=== PATIENT | male | born 1960 | race Caucasian/White ===

== ENCOUNTER 2016-04-06 22:08 | Inpatient (IN) | payer MEDICAID, OTHER ==
[~2016-04-06] VITALS: Ht 167.6 cm; Wt 62.3 kg
[2016-04-07 02:08] LABS: ANION GAP 3 mmol/L (8-16); CALCIUM, TOTAL 8.4 mg/dL (8.8-10.5); CARBON DIOXIDE 31 mmol/L (22-29); CHLORIDE 104 mmol/L (98-107); CREATININE 1.07 mg/dL (0.60-1.30); GLOMERULAR FILTR. RATE CALC > 60 mL/min (>60); POTASSIUM 4.2 mmol/L (3.5-5.1); SODIUM SERUM 138 mmol/L (136-145); UREA NITROGEN, BLOOD 18 mg/dL (7-18)
[2016-04-07 02:11] LABS: BASOPHILS # (AUTO) 0.05 K/uL (0.00-0.20); BASOPHILS % (AUTO) 0.7 % (0.0-2.0); EOSINOPHILS # (AUTO) 0.08 K/uL (0.00-0.70); EOSINOPHILS % (AUTO) 1.14 % (1.0-6.0); HEMATOCRIT 36.8 % (41-53); HEMOGLOBIN 12.2 g/dL (13.5-17.5); LYMPHOCYTES # (AUTO) 1.4 K/uL (1.0-4.8); LYMPHOCYTES % (AUTO) 20.1 % (22.0-44.0); MEAN CORPUSCULAR HEMOGLOBIN 30.6 pg (26.0-34.0); MEAN CORPUSCULAR HGB CONC 33.2 G/dL (31.0-37.0); MEAN CORPUSCULAR VOLUME 92 fL (80-100); MONOCYTES # (AUTO) 0.4 K/uL (0.1-1.0); MONOCYTES % (AUTO) 6.2 % (2.0-9.0); NEUTROPHILS # (AUTO) 5.1 K/uL (1.8-7.7); NEUTROPHILS % (AUTO) 71.9 % (40.0-70.0); PLATELET COUNT (AUTO) 99 K/uL (150-450); RED CELL DISTRIBUTION WIDTH 14.9 % (11.5-14.5); WHITE BLOOD COUNT (AUTO) 7.1 K/uL (4.5-11.0)
[2016-04-07 02:14] LABS: ALANINE AMINOTRANSFERASE 186 U/L (12-78); ALBUMIN 2.4 g/dL (3.4-5.0); ASPARTATE AMINOTRANSFERASE 156 U/L (15-37); BILIRUBIN,TOTAL 0.3 mg/dL (0.1-1.0); TOTAL PROTEIN, SERUM 6.7 g/dL (6.4-8.2)
[2016-04-07 02:50] LABS: RBC MORPHOLOGY COMMENT NORMAL RBC MORPH
[2016-04-07] MEDS ORDERED: HALOPERIDOL 5 MG TABLET PO PRN (10:00)
[2016-04-07 12:30] VITALS: BP 106/86
[2016-04-07] MEDS: LORazepam 2 MG TABLET PO PRN (12:35)
[2016-04-07] MEDS ORDERED: INFLUENZA VIRUS VACCINE QVS 2016-17 (3YR+)/PF 60 MCG/0.5 ML SYRINGE IM ONE (13:45)
[2016-04-07 16:13] VITALS: BP 134/75
[2016-04-07] MEDS: BENZTROPINE MESYLATE 1 MG TABLET PO SCH (20:34)
[2016-04-07] MEDS: OLANZapine 5 MG TABLET PO SCH (20:34)
[2016-04-08 08:47] VITALS: BP 120/72
[2016-04-08] MEDS: OLANZapine 5 MG TABLET PO SCH ×2 (10:23→20:14)
[2016-04-08] MEDS: BENZTROPINE MESYLATE 1 MG TABLET PO SCH ×2 (10:23→20:14)
[2016-04-08 16:50] VITALS: BP 102/71
[2016-04-09 06:23] VITALS: BP 103/59
[2016-04-09 08:38] VITALS: BP 107/68
[2016-04-09] MEDS: BENZTROPINE MESYLATE 1 MG TABLET PO SCH ×2 (09:51→20:36)
[2016-04-09] MEDS: OLANZapine 5 MG TABLET PO SCH ×2 (09:51→20:36)
[2016-04-09] MEDS: LORazepam 2 MG TABLET PO PRN (12:52)
[2016-04-09 16:26] VITALS: BP 97/67
[2016-04-10 00:36] VITALS: BP 100/58
[2016-04-10 08:13] VITALS: BP 107/68
[2016-04-10] MEDS: BENZTROPINE MESYLATE 1 MG TABLET PO SCH ×2 (09:00→20:20)
[2016-04-10] MEDS: OLANZapine 5 MG TABLET PO SCH ×2 (09:00→20:20)
[2016-04-10 18:17] VITALS: BP 115/67
[2016-04-11 07:09] VITALS: BP 123/70
[2016-04-11] MEDS: BENZTROPINE MESYLATE 1 MG TABLET PO SCH ×3 (08:58→21:00)
[2016-04-11] MEDS: OLANZapine 5 MG TABLET PO SCH ×2 (08:58→09:00)
[2016-04-11 09:11] VITALS: BP 111/64
[2016-04-11 16:14] VITALS: BP 115/70
[2016-04-11] MEDS: OLANZapine 10 MG TABLET PO SCH (21:00)
[2016-04-12 00:35] VITALS: BP 135/75
[2016-04-12] MEDS: OLANZapine 5 MG TABLET PO SCH (09:00)
[2016-04-12] MEDS: BENZTROPINE MESYLATE 1 MG TABLET PO SCH ×2 (09:00→20:46)
[2016-04-12] MEDS: OLANZapine 10 MG TABLET PO SCH (20:47)
[2016-04-13] MEDS: OLANZapine 5 MG TABLET PO SCH (09:00)
[2016-04-13] MEDS: BENZTROPINE MESYLATE 1 MG TABLET PO SCH ×2 (09:00→20:55)
[2016-04-13] MEDS ORDERED: HALOPERIDOL LACTATE 5 MG/ML VIAL IM PRN (13:15)
[2016-04-13] MEDS: OLANZapine 10 MG TABLET PO SCH (20:55)
[2016-04-14 08:16] VITALS: BP 115/60
[2016-04-14] MEDS: BENZTROPINE MESYLATE 1 MG TABLET PO SCH ×2 (09:32→20:47)
[2016-04-14] MEDS: OLANZapine 5 MG TABLET PO SCH (09:32)
[2016-04-14] MEDS: OLANZapine 10 MG TABLET PO SCH (20:47)
[2016-04-14] MEDS: ZOLPIDEM TARTRATE 10 MG TABLET PO PRN (23:49)
[2016-04-15 00:02] VITALS: BP 136/74
[2016-04-15 08:16] VITALS: BP 130/89
[2016-04-15] MEDS: OLANZapine 5 MG TABLET PO SCH (08:58)
[2016-04-15] MEDS: BENZTROPINE MESYLATE 1 MG TABLET PO SCH ×2 (08:58→20:40)
[2016-04-15] MEDS: LORazepam 2 MG TABLET PO PRN (10:28)
[2016-04-15 16:00] VITALS: BP 116/77
[2016-04-15] MEDS: OLANZapine 10 MG TABLET PO SCH (20:40)
[2016-04-15] MEDS: ZOLPIDEM TARTRATE 10 MG TABLET PO PRN (21:15)
[2016-04-16] MEDS: OLANZapine 5 MG TABLET PO SCH (08:53)
[2016-04-16] MEDS: BENZTROPINE MESYLATE 1 MG TABLET PO SCH ×2 (08:53→20:42)
[2016-04-16] MEDS: OLANZapine 10 MG TABLET PO SCH (20:42)
[2016-04-17] MEDS: BENZTROPINE MESYLATE 1 MG TABLET PO SCH ×2 (09:33→20:08)
[2016-04-17] MEDS: OLANZapine 5 MG TABLET PO SCH (09:33)
[2016-04-17] MEDS: OLANZapine 10 MG TABLET PO SCH (20:08)
[2016-04-18] MEDS: OLANZapine 5 MG TABLET PO SCH (08:59)
[2016-04-18] MEDS: BENZTROPINE MESYLATE 1 MG TABLET PO SCH ×2 (08:59→20:47)
[2016-04-18 09:05] VITALS: BP 134/73
[2016-04-18] MEDS: OLANZapine 10 MG TABLET PO SCH (20:47)
[2016-04-19] MEDS: BENZTROPINE MESYLATE 1 MG TABLET PO SCH ×2 (09:26→20:35)
[2016-04-19] MEDS: OLANZapine 5 MG TABLET PO SCH (09:26)
[2016-04-19] MEDS: OLANZapine 10 MG TABLET PO SCH (20:34)
[2016-04-20] MEDS: BENZTROPINE MESYLATE 1 MG TABLET PO SCH ×2 (08:48→20:56)
[2016-04-20] MEDS: OLANZapine 5 MG TABLET PO SCH (08:48)
[2016-04-20] MEDS: OLANZapine 10 MG TABLET PO SCH (20:56)
[2016-04-21] MEDS: BENZTROPINE MESYLATE 1 MG TABLET PO SCH ×2 (08:50→20:24)
[2016-04-21] MEDS: OLANZapine 10 MG TABLET PO SCH ×2 (08:50→20:24)
[2016-04-21 16:30] VITALS: BP 109/65
[2016-04-22] MEDS: BENZTROPINE MESYLATE 1 MG TABLET PO SCH ×2 (08:36→20:22)
[2016-04-22] MEDS: OLANZapine 10 MG TABLET PO SCH ×2 (08:36→20:23)
[2016-04-22 09:04] VITALS: BP 101/67
[2016-04-23] MEDS: BENZTROPINE MESYLATE 1 MG TABLET PO SCH ×2 (08:48→21:00)
[2016-04-23] MEDS: OLANZapine 10 MG TABLET PO SCH ×2 (08:48→21:00)
[2016-04-23 16:42] VITALS: BP 117/71
[2016-04-24] MEDS: BENZTROPINE MESYLATE 1 MG TABLET PO SCH ×2 (08:28→20:21)
[2016-04-24] MEDS: OLANZapine 10 MG TABLET PO SCH ×2 (08:28→20:21)
[2016-04-25] MEDS: BENZTROPINE MESYLATE 1 MG TABLET PO SCH ×2 (09:20→20:57)
[2016-04-25] MEDS: OLANZapine 10 MG TABLET PO SCH ×2 (09:20→20:57)
[2016-04-25 16:12] VITALS: BP 108/60
[2016-04-26 04:34] VITALS: BP 95/64
[2016-04-26] MEDS: BENZTROPINE MESYLATE 1 MG TABLET PO SCH ×2 (09:09→20:47)
[2016-04-26] MEDS: OLANZapine 10 MG TABLET PO SCH ×2 (09:09→20:47)
[2016-04-27] MEDS: OLANZapine 10 MG TABLET PO SCH ×2 (10:00→20:21)
[2016-04-27] MEDS: BENZTROPINE MESYLATE 1 MG TABLET PO SCH ×2 (10:00→20:21)
[2016-04-28 07:21] VITALS: BP 122/83
[2016-04-28] MEDS: BENZTROPINE MESYLATE 1 MG TABLET PO SCH ×2 (10:03→20:44)
[2016-04-28] MEDS: OLANZapine 10 MG TABLET PO SCH ×2 (10:03→20:44)
[2016-04-28 17:00] VITALS: BP 105/68
[2016-04-29 01:41] VITALS: BP 117/71
[2016-04-29] MEDS: BENZTROPINE MESYLATE 1 MG TABLET PO SCH ×2 (09:23→20:22)
[2016-04-29] MEDS: OLANZapine 10 MG TABLET PO SCH ×2 (09:23→20:22)
[2016-04-29 16:46] VITALS: BP 105/66
[2016-04-30] MEDS: BENZTROPINE MESYLATE 1 MG TABLET PO SCH ×2 (09:50→20:46)
[2016-04-30] MEDS: OLANZapine 10 MG TABLET PO SCH ×2 (09:50→20:46)
[2016-04-30 16:00] VITALS: BP 120/67
[2016-05-01 02:14] LABS: HEPATITIS Bs ANTIGEN SCREEN P Negative (Negative); HEPATITIS C AB SCREEN >11.0 s/co ratio (0.0-0.9)
[2016-05-01 08:43] VITALS: BP 126/60
[2016-05-01] MEDS: OLANZapine 10 MG TABLET PO SCH ×2 (09:23→20:16)
[2016-05-01] MEDS: BENZTROPINE MESYLATE 1 MG TABLET PO SCH ×2 (09:23→20:16)
[2016-05-01 16:13] VITALS: BP 117/71
[2016-05-02] MEDS: BENZTROPINE MESYLATE 1 MG TABLET PO SCH ×2 (09:30→20:28)
[2016-05-02] MEDS: OLANZapine 10 MG TABLET PO SCH (09:30)
[2016-05-02 16:25] VITALS: BP 110/71
[2016-05-02] MEDS: OLANZapine 7.5 MG TABLET PO SCH (20:29)
[2016-05-03 06:42] VITALS: BP 103/60
[2016-05-03] MEDS: BENZTROPINE MESYLATE 1 MG TABLET PO SCH ×2 (08:44→20:50)
[2016-05-03] MEDS: OLANZapine 7.5 MG TABLET PO SCH ×2 (08:45→20:51)
[2016-05-03 16:18] VITALS: BP 114/71
[2016-05-04] MEDS: BENZTROPINE MESYLATE 1 MG TABLET PO SCH ×2 (09:26→20:11)
[2016-05-04] MEDS: OLANZapine 7.5 MG TABLET PO SCH ×2 (09:26→20:11)
[2016-05-04 16:00] VITALS: BP 114/60
[2016-05-05 06:34] VITALS: BP 101/63
[2016-05-05 08:24] VITALS: BP 103/61
[2016-05-05] MEDS: BENZTROPINE MESYLATE 1 MG TABLET PO SCH ×2 (09:07→20:21)
[2016-05-05] MEDS: OLANZapine 7.5 MG TABLET PO SCH ×2 (09:07→20:21)
[2016-05-06 07:05] VITALS: BP 112/58
[2016-05-06 08:01] VITALS: BP 102/58
[2016-05-06] MEDS: BENZTROPINE MESYLATE 1 MG TABLET PO SCH ×2 (09:23→20:11)
[2016-05-06] MEDS: OLANZapine 7.5 MG TABLET PO SCH ×2 (09:23→20:11)
[2016-05-07 02:02] VITALS: BP 107/72
[2016-05-07 08:52] VITALS: BP 105/63
[2016-05-07] MEDS: OLANZapine 7.5 MG TABLET PO SCH ×2 (09:00→20:20)
[2016-05-07] MEDS: BENZTROPINE MESYLATE 1 MG TABLET PO SCH ×2 (09:00→20:20)
[2016-05-07 16:10] VITALS: BP 106/60
[2016-05-08 06:14] VITALS: BP 105/74
[2016-05-08 08:16] VITALS: BP 108/65
[2016-05-08] MEDS: BENZTROPINE MESYLATE 1 MG TABLET PO SCH ×2 (09:20→21:09)
[2016-05-08] MEDS: OLANZapine 7.5 MG TABLET PO SCH ×2 (09:20→21:09)
[2016-05-09 00:20] VITALS: BP 111/60
[2016-05-09 08:00] VITALS: BP 101/69
[2016-05-09] MEDS: BENZTROPINE MESYLATE 1 MG TABLET PO SCH ×2 (09:22→22:11)
[2016-05-09] MEDS: OLANZapine 7.5 MG TABLET PO SCH ×2 (09:23→22:14)
[2016-05-10] MEDS: OLANZapine 7.5 MG TABLET PO SCH ×2 (10:15→21:01)
[2016-05-10] MEDS: BENZTROPINE MESYLATE 1 MG TABLET PO SCH ×2 (10:15→21:02)
[2016-05-11] MEDS: OLANZapine 7.5 MG TABLET PO SCH ×2 (08:56→20:21)
[2016-05-11] MEDS: BENZTROPINE MESYLATE 1 MG TABLET PO SCH ×2 (08:56→20:21)
[2016-05-11 10:02] VITALS: BP 111/67
[2016-05-11 16:24] VITALS: BP 123/66
[2016-05-12] MEDS: BENZTROPINE MESYLATE 1 MG TABLET PO SCH ×2 (09:07→20:20)
[2016-05-12] MEDS: OLANZapine 7.5 MG TABLET PO SCH ×2 (09:07→20:21)
[2016-05-12 12:52] LABS: GLUCOSE,POINT OF CARE 150 MG/DL (70-110)
[2016-05-13 01:54] VITALS: BP 103/65
[2016-05-13] MEDS: BENZTROPINE MESYLATE 1 MG TABLET PO SCH ×2 (09:45→20:37)
[2016-05-13] MEDS: OLANZapine 7.5 MG TABLET PO SCH ×2 (09:48→20:38)
[2016-05-13 10:57] LABS: GLUCOSE,POINT OF CARE 171 MG/DL (70-110)
[2016-05-13] MEDS: MetFORMIN HCL 500 MG TABLET PO SCH (16:41)
[2016-05-14 05:56] VITALS: BP 104/68
[2016-05-14] MEDS: MetFORMIN HCL 500 MG TABLET PO SCH ×2 (06:54→16:34)
[2016-05-14 09:13] VITALS: BP 107/58
[2016-05-14] MEDS: BENZTROPINE MESYLATE 1 MG TABLET PO SCH ×2 (09:54→20:21)
[2016-05-14] MEDS: OLANZapine 7.5 MG TABLET PO SCH ×2 (09:54→20:21)
[2016-05-14 15:57] LABS: GLUCOSE,POINT OF CARE 142 MG/DL (70-110)
[2016-05-14 16:21] VITALS: BP 108/73
[2016-05-15 05:53] VITALS: BP 107/61
[2016-05-15] MEDS: MetFORMIN HCL 500 MG TABLET PO SCH ×2 (06:25→17:01)
[2016-05-15 08:27] VITALS: BP 100/66
[2016-05-15] MEDS: BENZTROPINE MESYLATE 1 MG TABLET PO SCH ×2 (09:51→20:05)
[2016-05-15] MEDS: OLANZapine 7.5 MG TABLET PO SCH ×2 (09:51→20:05)
[2016-05-15 11:07] LABS: GLUCOSE,POINT OF CARE 138 MG/DL (70-110)
[2016-05-16 06:15] VITALS: BP 119/70
[2016-05-16] MEDS: MetFORMIN HCL 500 MG TABLET PO SCH ×2 (06:34→17:01)
[2016-05-16] MEDS: OLANZapine 7.5 MG TABLET PO SCH ×2 (09:33→20:46)
[2016-05-16] MEDS: BENZTROPINE MESYLATE 1 MG TABLET PO SCH ×2 (09:33→20:45)
[2016-05-16 10:01] VITALS: BP 123/66
[2016-05-16 13:52] LABS: GLUCOSE COMMENT 1 Post Meal; GLUCOSE,POINT OF CARE 146 MG/DL (70-110)
[2016-05-16 16:18] VITALS: BP 116/66
[2016-05-17 00:37] VITALS: BP 108/65
[2016-05-17] MEDS: MetFORMIN HCL 500 MG TABLET PO SCH ×2 (06:35→16:22)
[2016-05-17 08:46] VITALS: BP 113/62
[2016-05-17] MEDS: BENZTROPINE MESYLATE 1 MG TABLET PO SCH ×2 (09:22→20:16)
[2016-05-17] MEDS: OLANZapine 7.5 MG TABLET PO SCH ×2 (09:23→20:17)
[2016-05-17 16:12] VITALS: BP 109/68
[2016-05-18] MEDS: MetFORMIN HCL 500 MG TABLET PO SCH ×2 (06:38→16:26)
[2016-05-18 06:40] VITALS: BP 125/60
[2016-05-18 06:42] VITALS: BP 108/60
[2016-05-18] MEDS: OLANZapine 7.5 MG TABLET PO SCH ×2 (08:13→20:44)
[2016-05-18] MEDS: BENZTROPINE MESYLATE 1 MG TABLET PO SCH ×2 (08:13→20:44)
[2016-05-18 11:18] LABS: GLUCOSE,POINT OF CARE 116 MG/DL (70-110)
[2016-05-19 04:50] VITALS: BP 118/77
[2016-05-19] MEDS: MetFORMIN HCL 500 MG TABLET PO SCH ×2 (06:26→16:49)
[2016-05-19 08:26] VITALS: BP 118/61
[2016-05-19] MEDS: OLANZapine 7.5 MG TABLET PO SCH ×2 (09:43→20:24)
[2016-05-19] MEDS: BENZTROPINE MESYLATE 1 MG TABLET PO SCH ×2 (09:44→20:23)
[2016-05-19 11:17] LABS: GLUCOSE,POINT OF CARE 192 MG/DL (70-110)
[2016-05-19 16:24] VITALS: BP 111/65
[2016-05-19] MEDS ORDERED: PERMETHRIN 5% 60 GM CREAM TP ONE (21:00)
[2016-05-20 00:59] VITALS: BP 102/71
[2016-05-20] MEDS: MetFORMIN HCL 500 MG TABLET PO SCH ×2 (06:33→17:24)
[2016-05-20] MEDS ORDERED: PERMETHRIN 1% 60 ML LOTION TP ONE (07:00)
[2016-05-20] MEDS: OLANZapine 7.5 MG TABLET PO SCH ×2 (09:36→20:01)
[2016-05-20] MEDS: BENZTROPINE MESYLATE 1 MG TABLET PO SCH ×2 (09:37→20:01)
[2016-05-20 11:28] LABS: GLUCOSE,POINT OF CARE 129 MG/DL (70-110)
[2016-05-21 06:03] VITALS: BP 103/70
[2016-05-21] MEDS: MetFORMIN HCL 500 MG TABLET PO SCH ×2 (07:07→17:15)
[2016-05-21 09:07] VITALS: BP 101/57
[2016-05-21] MEDS: BENZTROPINE MESYLATE 1 MG TABLET PO SCH ×2 (09:21→21:16)
[2016-05-21] MEDS: OLANZapine 7.5 MG TABLET PO SCH ×2 (09:21→21:16)
[2016-05-21 10:51] LABS: GLUCOSE,POINT OF CARE 119 MG/DL (70-110)
[2016-05-21] MEDS: PERMETHRIN 1% 60 ML LOTION TP ONE ×2 (15:30→17:16)
[2016-05-22] MEDS: MetFORMIN HCL 500 MG TABLET PO SCH ×2 (06:40→16:27)
[2016-05-22] MEDS: OLANZapine 7.5 MG TABLET PO SCH ×2 (09:38→20:28)
[2016-05-22] MEDS: BENZTROPINE MESYLATE 1 MG TABLET PO SCH ×2 (09:38→20:28)
[2016-05-22 11:17] LABS: GLUCOSE,POINT OF CARE 127 MG/DL (70-110)
[2016-05-22] MEDS ORDERED: PERMETHRIN 1% 60 ML LOTION TP ONE (13:30)
[2016-05-22 16:11] VITALS: BP 117/69
[2016-05-23 04:25] VITALS: BP 106/60
[2016-05-23] MEDS: MetFORMIN HCL 500 MG TABLET PO SCH ×2 (06:31→17:33)
[2016-05-23 09:00] VITALS: BP 109/69
[2016-05-23] MEDS: BENZTROPINE MESYLATE 1 MG TABLET PO SCH ×2 (09:11→20:06)
[2016-05-23] MEDS: OLANZapine 7.5 MG TABLET PO SCH ×2 (09:12→20:06)
[2016-05-23] MEDS ORDERED: PERMETHRIN 1% 60 ML LOTION TP ONE (09:45)
[2016-05-23 16:00] VITALS: BP 101/63
[2016-05-24] MEDS: MetFORMIN HCL 500 MG TABLET PO SCH ×2 (06:50→16:29)
[2016-05-24] MEDS: OLANZapine 7.5 MG TABLET PO SCH ×2 (08:35→20:40)
[2016-05-24] MEDS: BENZTROPINE MESYLATE 1 MG TABLET PO SCH ×2 (08:35→20:40)
[2016-05-24 11:06] LABS: GLUCOSE,POINT OF CARE 150 MG/DL (70-110)
[2016-05-25 06:17] VITALS: BP 105/65
[2016-05-25] MEDS: MetFORMIN HCL 500 MG TABLET PO SCH ×2 (06:43→17:19)
[2016-05-25 08:54] VITALS: BP 101/66
[2016-05-25] MEDS: BENZTROPINE MESYLATE 1 MG TABLET PO SCH ×2 (09:42→20:35)
[2016-05-25] MEDS: OLANZapine 7.5 MG TABLET PO SCH ×2 (09:42→20:36)
[2016-05-25 16:27] VITALS: BP 101/66
[2016-05-26 01:10] VITALS: BP 114/87
[2016-05-26] MEDS: MetFORMIN HCL 500 MG TABLET PO SCH ×2 (06:52→17:01)
[2016-05-26 08:54] VITALS: BP 108/66
[2016-05-26] MEDS: BENZTROPINE MESYLATE 1 MG TABLET PO SCH ×2 (09:12→20:48)
[2016-05-26] MEDS: OLANZapine 7.5 MG TABLET PO SCH ×2 (09:12→20:48)
[2016-05-26 11:33] LABS: GLUCOSE,POINT OF CARE 135 MG/DL (70-110)
[2016-05-26 16:00] VITALS: BP 124/67
[2016-05-27 01:13] VITALS: BP 107/61
[2016-05-27] MEDS: MetFORMIN HCL 500 MG TABLET PO SCH ×2 (06:23→16:31)
[2016-05-27 09:03] VITALS: BP 121/66
[2016-05-27] MEDS: OLANZapine 7.5 MG TABLET PO SCH ×2 (09:09→21:06)
[2016-05-27] MEDS: BENZTROPINE MESYLATE 1 MG TABLET PO SCH ×2 (09:09→21:06)
[2016-05-27 11:21] LABS: GLUCOSE,POINT OF CARE 102 MG/DL (70-110)
[2016-05-27 18:02] VITALS: BP 110/75
[2016-05-28] MEDS: MetFORMIN HCL 500 MG TABLET PO SCH (06:23)
[2016-05-28 06:48] VITALS: BP 115/74
[2016-05-28 08:12] VITALS: BP 105/68
[2016-05-28] MEDS: BENZTROPINE MESYLATE 1 MG TABLET PO SCH (09:21)
[2016-05-28] MEDS: OLANZapine 7.5 MG TABLET PO SCH (09:23)
[2016-05-28] MEDS ORDERED: OLAN5Z PO (12:22)
[2016-05-28] MEDS ORDERED: BENZ1TAB10 PO (12:22)
[2016-05-28] MEDS ORDERED: METF500T4 PO (12:23)
[2016-05-28 16:01] LABS: GLUCOSE,POINT OF CARE 121 MG/DL (70-110)
== END 2016-05-28 13:40 | disposition home or self-care (01) | DRG 750 ==
LOC: EMS 22:10 → AHU 04-07 10:34 → B2S 04-07 11:44
DX: F20.0 Paranoid schizophrenia (principal); I95.9 Hypotension, unspecified; R74.8 Abnormal levels of other serum enzymes; R45.851 Suicidal ideations; Z91.19 Patient's noncompliance with other medical treatment and regimen; R73.9 Hyperglycemia, unspecified; D64.9 Anemia, unspecified; Z59.0 Homelessness; Z79.899 Other long term (current) drug therapy; Z28.21 Immunization not carried out because of patient refusal; Z81.8 Family history of other mental and behavioral disorders
CPT/HCPCS: 80074; 82962; 83036; 87081; 99285; G0480